=== PATIENT | female | born 1985 | race Caucasian/White ===

== ENCOUNTER 2018-07-22 06:54 | Day surgery (SDC) | payer BC ==
[~2018-07-22] VITALS: Ht 165.1 cm; Wt 104.8 kg
[~2018-07-22 06:54] MED LIST: ALBU90OI; ALBU90OI61 INH; AMOX500 PO; BECLOMETHASONE; CIPR500 PO; CLARITIN10 MG PO; LEVFLO500 PO; Neurontin600 MG PO; OXYACE5T PO; PHENA200 PO; PROM25 PO; Pulmicort Flex90 MCG INH; SULTRIDS PO; SULTRISS; Sudogest60 MG PO; [UNRECOGNIZED DRUG - OTHER]
== END 2018-07-22 09:35 | disposition home or self-care (01) ==
LOC: ORSCSDS 06:54
PROVIDERS: Orthopaedic Surgery
PROC: 0LB50ZZ Excision of Right Lower Arm and Wrist Tendon, Open Approach (ICD-10-PCS; principal; 2018-07-22 08:00)
DX: M67.431 Ganglion, right wrist (principal); J45.909 Unspecified asthma, uncomplicated; Z87.891 Personal history of nicotine dependence; E66.01 Morbid (severe) obesity due to excess calories; Z68.38 Body mass index [BMI] 38.0-38.9, adult; Z79.899 Other long term (current) drug therapy
CPT/HCPCS: 88304; J0690; J1100; J1885; J2250; J2405; J2795; J3010

== ENCOUNTER 2019-07-24 12:50 | Emergency (ER) | payer BC ==
[~2019-07-24] VITALS: Ht 165.1 cm; Wt 105.2 kg
[2019-07-24] MEDS ORDERED: Norco 5-325 Ta1 EACH PO (15:33)
[2019-07-24] MEDS ORDERED: Augmentin 875-1 EACH PO (15:33)
== END 2019-07-24 15:40 | disposition home or self-care (01) ==
LOC: ER 12:50
DX: S61.451A Open bite of right hand, initial encounter (principal); J45.909 Unspecified asthma, uncomplicated; Z23 Encounter for immunization; Z79.899 Other long term (current) drug therapy; Z79.51 Long term (current) use of inhaled steroids; W54.0XXA Bitten by dog, initial encounter
CPT/HCPCS: 90471; 90714; 99282-25

== ENCOUNTER 2019-07-25 04:32 | Emergency (ER) | payer BC ==
[~2019-07-25] VITALS: Ht 165.1 cm; Wt 105.2 kg
[~2019-07-25 04:32] MED LIST changes: +Augmentin 875-1 EACH PO; +Norco 5-325 Ta1 EACH PO
== END 2019-07-25 07:37 | disposition home or self-care (01) ==
LOC: ER 04:32
DX: L03.113 Cellulitis of right upper limb (principal); S51.851A Open bite of right forearm, initial encounter; J45.909 Unspecified asthma, uncomplicated; Z87.891 Personal history of nicotine dependence; Z79.51 Long term (current) use of inhaled steroids; Z79.899 Other long term (current) drug therapy; W54.0XXA Bitten by dog, initial encounter
CPT/HCPCS: 96365; 96375; 99281-25; J1885; J2543

== ENCOUNTER 2019-07-25 15:01 | Emergency (ER) | payer BC ==
[~2019-07-25] VITALS: Ht 165.1 cm; Wt 105.2 kg
== END 2019-07-25 17:27 | disposition home or self-care (01) ==
LOC: ER 15:01
DX: L03.113 Cellulitis of right upper limb (principal); J45.909 Unspecified asthma, uncomplicated; Z79.51 Long term (current) use of inhaled steroids; Z79.899 Other long term (current) drug therapy; Z87.891 Personal history of nicotine dependence
CPT/HCPCS: 96365; 99281-25; J2543

== ENCOUNTER → 2019-08-04 | Outpatient (CLI) | payer BC ==
[2019-08-06 15:11] LABS: HPV 16 Negative (Negative); HPV 18 Negative (Negative); HPV OTHER HR TYPES Negative (Negative)
== END | disposition home or self-care (01) ==
LOC: LAB SHORT 18:31 → LAB 18:31
PROVIDERS: Internal Medicine
DX: Z12.4 Encounter for screening for malignant neoplasm of cervix (principal)
CPT/HCPCS: 87624; G0145

== ENCOUNTER → 2019-08-30 | Outpatient (CLI) | payer BC | END | disposition home or self-care (01) | LOC: LAB EV 17:26 → LAB SHORT 17:26 | DX: N12 Tubulo-interstitial nephritis, not specified as acute or chronic (principal) | CPT/HCPCS: 87086 ==

== ENCOUNTER → 2019-09-09 | Outpatient (CLI) | payer BC ==
[2019-09-11 04:07] LABS: CHLAMYDIA TRACHOMATIS, NAA Negative (Negative); NEISSERIA GONORRHOEAE, NAA Negative (Negative)
== END | disposition home or self-care (01) ==
LOC: LAB SHORT 08:20 → LAB 08:20
PROVIDERS: Internal Medicine
DX: Z91.89 Other specified personal risk factors, not elsewhere classified (principal)
CPT/HCPCS: 87491; 87591

== ENCOUNTER 2021-01-06 09:46 | Day surgery (SDC) | payer BC ==
[~2021-01-06] VITALS: Ht 165.1 cm; Wt 108.4 kg
[~2021-01-06 09:46] MED LIST changes: +ALLEGRA ALLERG180 MG PO; +ESCI5 PO; +GABA600; +IBUP800 PO; +OMEP20ER PO; +Phentermine HCl15 MG PO; +Ventolin/Prove6.7 GM INH
--- NOTE | 2021-01-06 12:15 | NUR ---
01/06/21 1215 Casi Tavera BUPIVACAINE 0.5% 50 MLS MIXED WITH EPI 0.25 ML PER ORDER TO MAKE BUPIVACAINE 0.5% 1:200,000 FOR INJECTION AT OPSITE BY DR. MALCOLM. MULTI DOSE VIAL. MIXED, DIVIDED, & VERIFIED IN OR BY RNS.
== END 2021-01-06 13:38 | disposition home or self-care (01) ==
LOC: ORSCSDS 09:46
PROVIDERS: Podiatrist Foot & Ankle Surgery
PROC: 0LQP0ZZ Repair Left Lower Leg Tendon, Open Approach (ICD-10-PCS; principal; 2021-01-06 11:00)
DX: M76.72 Peroneal tendinitis, left leg (principal); J45.909 Unspecified asthma, uncomplicated; K21.9 Gastro-esophageal reflux disease without esophagitis; E66.01 Morbid (severe) obesity due to excess calories; Z68.39 Body mass index [BMI] 39.0-39.9, adult; F41.9 Anxiety disorder, unspecified; F32.9 Major depressive disorder, single episode, unspecified; Z87.891 Personal history of nicotine dependence; Z79.899 Other long term (current) drug therapy
CPT/HCPCS: J0171; J0690; J1100; J1885; J2250; J2405; J2704; J2765; J3010; J7120

== ENCOUNTER → 2024-06-23 | Outpatient (CLI) | payer BC ==
[2024-07-01 09:41] LABS: HPV HIGH RISK BY TMA Not Detected; HPV SOURCE Cervical
== END ==
LOC: LAB 15:45 → LAB SHORT 15:45
PROVIDERS: Internal Medicine
DX: Z12.4 Encounter for screening for malignant neoplasm of cervix (principal)
CPT/HCPCS: 87624; G0123